=== PATIENT | female | born 1955 | race Caucasian/White ===

== ENCOUNTER 2017-06-05 15:08 | Emergency (ER) | payer MEDICAID ==
[2017-06-05] MEDS ORDERED: Labetalol 100 MG/20 ML MDV IVPUSH ONE (15:50)
--- NOTE | 2017-06-05 15:50 | EDM.PDOC ---
ED HPI GENERAL MEDICAL PROBLEM - General Chief Complaint: Cardiovascular Problem Stated Complaint: HIGH BP Time Seen by Provider: 06/05/17 15:40 Source of Information: Reports: Patient History Limitations: Reports: No Limitations - History of Present Illness INITIAL COMMENTS - FREE TEXT/NARRATIVE: 61-year-old female presents the ED for evaluation of high blood pressure. She was seen at the [facility] earlier today and BPs worse well over 200 systolically and around 110 to 1:15 diastolically. She's been taking metoprolol 50 mg twice a day and half of her triamterene/hydrochlorothiazide tablet daily. She does go to the doctor very often his financial barriers exist. Also exist to ability to purchase medications. She was thus sent her for blood pressure control and further investigations. She has no headache. She is quite anxious from being told that she is at high risk of stroke and heart attack from the clinic. Onset: Unknown/Unsure (Likely a chronic problem but rarely goes to clinic.) Duration: Chronic Location: Reports: Generalized Quality: Reports: Other (Has no pain) Severity: Moderate Improves with: Reports: None Worsens with: Reports: None Context: Denies: Activity, Exercise, Lifting, Sick Contact, Trauma, Other Associated Symptoms: Reports: No Other Symptoms Treatments CNS: Reports: Other (see below) (None.) - Related Data Allergies Allergy/AdvReac Type Severity Reaction Status Date / Time No Known Allergies Allergy Verified 06/05/17 15:30 Home Meds: Home Meds Metoprolol Tartrate [Lopressor] 50 mg PO BID 06/05/17 [History] Metoprolol Tartrate [Lopressor] 50 mg PO Q12HR #60 tablet 06/05/17 [Rx] Triamterene/Hydrochlorothiazid [Triamterene-HCTZ 37.5-25 MG] 1 tab PO DAILY [History] amLODIPine [Norvasc] 10 mg PO DAILY #30 tablet 06/05/17 [Rx] Past Medical History Cardiovascular History: Reports: Hypertension 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 Denies: Fever, Chills, Diaphoresis, Decreased Appetite, Weight Loss HEENT: Reports: Glasses (Wears glasses for reading.) Respiratory: Reports: Pleuritic Chest Pain (Intermittent sharp stabbing chest pain in the center of her chest and limited to the left precordium and is relieved by burping suggesting esophageal spasm.), Cough (Chronic cough clear sputum.). Denies: Shortness of Breath, Wheezing Cardiovascular: Reports: Chest Pain, Blood Pressure Problem (Intermittent sharp stabbing precordial chest pain that improves with burping.), Dyspnea on Exertion. Denies: Claudication ( And hypertensive for greater than 20 years.), Edema, Lightheadedness, Orthopnea, Palpitations Endocrine: Reports: Fatigue GI/Abdominal: Denies: Abdominal Pain, Anorexia, Black Stool, Bloody Stool, Constipation, Diarrhea, Decreased Appetite, Difficulty Swallowing, Distension, Flatus, Hematemesis, Hematochezia, Melena, Mucous in Stool, Nausea : Reports: Frequency. Denies: Incontinence Musculoskeletal: Reports: No Symptoms Skin: Reports: No Symptoms Neurological: Reports: No Symptoms Psychiatric: Reports: No Symptoms ED EXAM, GENERAL - Physical Exam Exam: See Below Exam Limited By: No Limitations General Appearance: Moderate Distress (Very anxious about possibility of having a stroke or heart attack.) Eye Exam: Bilateral Eye: Normal Inspection Throat/Mouth: Normal Inspection, Normal Lips, Normal Oropharynx Head: Atraumatic, Normocephalic Neck: Normal Inspection, Supple, Non-Tender, Full Range of Motion. No: Lymphadenopathy (L), Lymphadenopathy (R) Respiratory/Chest: No Respiratory Distress, Lungs Clear, Normal Breath Sounds, No Accessory Muscle Use Cardiovascular: Normal Peripheral Pulses, Regular Rate, Rhythm, No Edema, No Gallop, No Murmur Peripheral Pulses: 2+: Posterior Tibial (L), Posterior Tibial (R), Dorsalis Pedis (L), Dorsalis Pedis (R) GI/Abdominal: Normal Bowel Sounds, Soft, Non-Tender, No Organomegaly, No Distention, Other Back Exam: Normal Inspection, Full Range of Motion. No: CVA Tenderness (L), CVA Tenderness (R) Extremities: Normal Inspection, Normal Range of Motion, Non-Tender, No Pedal Edema Neurological: Alert, Oriented, CN II-XII Intact, Normal Cognition, Normal Gait Psychiatric: Normal Affect, Normal Mood Skin Exam: Warm, Dry, Intact, Normal Color, No Rash EKG INTERPRETATION EKG Date: 06/05/17 Time: 16:10 Rhythm: NSR Rate (Beats/Min): 70 [place]: Normal P-Wave: Present QRS: Normal ST-T: Normal QT: Prolonged (Moderately prolonged at 409.) Course - Vital Signs Last Recorded V/S: Last Vital Signs Temp 36.3 C 06/05/17 15:20 Pulse 69 06/05/17 16:09 Resp 16 06/05/17 15:20 BP 186/95 H 06/05/17 16:09 Pulse Ox 96 06/05/17 15:20 - Orders/Labs/Meds Orders: Active Orders 24 hr Category Date Time Status EKG Documentation Completion [RC] STAT Care 06/05/17 15:52 Active Chest 1V Frontal [CR] Stat Exams 06/05/17 15:52 Taken Labs: Laboratory Tests 06/05/17 06/05/17 06/05/17 Range/Units 15:35 15:35 16:00 WBC 5.96 (3.98-10.04) K/mm3 RBC 4.86 (3.98-5.22) M/mm3 Hgb 15.1 (11.2-15.7) gm/L Hct 45.2 H (34.1-44.9) % MCV 93.0 (79.4-94.8) fl MCH 31.1 (25.6-32.2) pg MCHC 33.4 (32.2-35.5) g/dl RDW Std Deviation 43.2 (36.4-46.3) fL Plt Count 269 (182-369) K/mm3 MPV 8.4 L (9.4-12.3) fl Neutrophils % (Manual) 73 H (40-60) % Band Neutrophils % 0 (0-10) % Lymphocytes % (Manual) 16 L (20-40) % Atypical Lymphs % 8 % Monocytes % (Manual) 2 (2-10) % Eosinophils % (Manual) 0 L (0.7-5.8) % Basophils % (Manual) 1 (0.1-1.2) Platelet Estimate Adequate Plt Morphology Comment Normal RBC Morph Comment Normal Sodium 135 L (136-145) mEq/L Potassium 3.9 (3.5-5.1) mEq/L Chloride 97 L (98-107) mEq/L Carbon Dioxide 28 (21-32) mEq/L Anion Gap 13.9 (5-15) BUN 11 (7-18) mg/dL Creatinine 1.0 (0.55-1.02) mg/dL Est Cr Clr Drug Dosing 56.00 mL/min Estimated GFR (MDRD) 56 (>60) mL/min BUN/Creatinine Ratio 11.0 L (14-18) Glucose 92 (80-115) mg/dL Calcium 9.2 (8.5-10.1) mg/dL Total Bilirubin 0.8 (0.2-1.0) mg/dL AST 34 (15-37) U/L ALT 37 (14-59) U/L Alkaline Phosphatase 84 (46-116) U/L C-Reactive Protein < 0.2 (<1.0) mg/dL Total Protein 8.1 (6.4-8.2) g/dl Albumin 4.2 (3.4-5.0) g/dl Globulin 3.9 gm/dL Albumin/Globulin Ratio 1.1 (1-2) TSH 3rd Generation 1.886 (0.358-3.74) uIU/mL Urine Color Yellow (Yellow) Urine Appearance Clear (Clear) Urine pH 6.5 (5.0-8.0) Ur Specific [place] 1.015 (1.005-1.030) Urine Protein Negative (Negative) Urine Glucose (UA) Negative (Negative) Urine Ketones Negative (Negative) Urine Occult Blood Negative (Negative) Urine Nitrite Negative (Negative) Urine Bilirubin Negative (Negative) Urine Urobilinogen 0.2 (0.2-1.0) Ur Leukocyte Esterase Negative (Negative) Urine RBC Not seen (0-5) /hpf Urine WBC 0-5 (0-5) /hpf Ur Epithelial Cells 0-5 (0-5) /hpf Urine Bacteria Moderate H (FEW) /hpf Urine Mucus Not seen (FEW) /hpf Meds: Medications Discontinued Medications Generic Name Dose Route Start Last Admin Trade Name Freq PRN Reason Stop Dose Admin Amlodipine Besylate 10 mg 06/05/17 15:51 06/05/17 16:09 Norvasc PO 06/05/17 15:52 10 mg ONETIME ONE Administration Labetalol HCl 20 mg 06/05/17 15:50 06/05/17 16:09 Normodynori IVPUSH 06/05/17 15:51 20 mg ONETIME ONE Administration Protocol - Radiology Interpretation Free Text/Narrative:: 61-year-old female presents to the ED at the request of her PA in [place]. She was found to have significant systolic hypertension with persistent systolics well over 200 between 202 20 and diastolics between 110 and 120. She is supposed to be on metoprolol 50 mg twice a day and triamterene/ hydrochlorothiazide one half tablet daily. She states she's been taking these but she does rash in the water pill at times. She is of limited financial resources. On arrival here she is otherwise normal with no headache no vertigo no evidence of malignant hypertension symptoms. Heart rate is sinus at 70/m ECG shows no evidence of left ventricular hypertrophy pattern. BP initially is 210/ 114. Plan she'll be given labetalol 20 mg IV and amlodipine 10 mg by mouth. Labs including renal function to be done. One view chest x-ray as well. - Re-Assessments/Exams Free Text/Narrative Re-Assessment/Exam: 06/05/17 16:28 chest x-ray reveals slightly hyperinflated lung pascal. Cardiac silhouette is normal. 06/05/17 17:10 labs reveal a normal white count at 5.96 with 73% neutrophils and no bands. Hemoglobin is 15.1 with hematocrit of 45.2. Platelets are 269, 000. Serum sodium is 135 potassium was 3.9 chloride was 97 bicarbonate was 28. Creatinine is 1.0 with an EGFR of 56. And a gap is 13.9 thyroid function TSH was 1.866 all normal. Therefore it appears that she has no evidence of organ damage from chronic hypertension and that it may have been uncontrolled for the last few months but not for many years. Medication changes do. Her blood pressure came down nicely to 157/90 after labetalol 20 mg IV. She also did receive amlodipine 10 mg by mouth. I'm going to discontinue her triamterene hydrochlorothiazide tablets and she's only taking half once a day anyways. She will stay on metoprolol 50 twice a day and will add amlodipine 10 mg once daily to her treatment plan. She will be purchasing a blood pressure monitor for home use as well as getting it checked outside the clinic in writing these numbers down so that we can identify if she needs further medications to control her hypertension. She will following up in the [facility] primarily. Departure - Departure Time of Disposition: 17:11 Disposition: Home, Self-Care 01 Condition: Fair Clinical Impression: Uncontrolled hypertension, stage 1 Prescriptions: Metoprolol Tartrate [Lopressor] 50 mg PO Q12HR #60 tablet amLODIPine [Norvasc] 10 mg PO DAILY #30 tablet Referrals: Jolene Wyatt NP [Primary Care Provider] - Forms: ED Department Discharge Additional Instructions: Evaluation in the emergency room today due to uncontrolled high blood pressure. Blood pressures at the clinic were well over 200 on the top number and over 110 on the bottom number. They should almost always be under 155 on the top and under 90 on the bottom. Complete investigations done through the ED did not reveal any problems with the kidneys liver urinary tract or heart systems. Therefore the high blood pressure has not caused any damage to your internal major organs. You're treated with labetalol 20 mg intravenously and given amlodipine 10 mg by mouth which reduced her blood pressure to 157/90. Treatment at home will now be to discontinue the triamterene had/hydrochlorothiazide tablet since she will no been taking a half once a day and some very weak blood pressure medication. Change will be continue metoprolol or Lopressor 50 mg twice daily as you have been doing. And the new medication will be called M [place] 10 mg once daily daily either first thing in the morning or at bedtime as tends to provide better 24-hour coverage of high blood pressure. It is probably better used at bedtime. Check her blood pressures outside of the clinic and hospital in various pharmacies and write down the time and the numbers that you achieve so helps us decide whether or not her blood pressure medications are adequate or whether you need further treatment. Follow-up in the clinic in about a month's time. - My Orders Last 24 Hours: My Active Orders 06/05/17 15:52 EKG Documentation Completion [RC] STAT Chest 1V Frontal [CR] Stat - Assessment/Plan Last 24 Hours: My Active Orders 06/05/17 15:52 EKG Documentation Completion [RC] STAT Chest 1V Frontal [CR] Stat
[2017-06-05] MEDS ORDERED: amLODIPine 10 MG Tab PO ONE (15:51)
[2017-06-05 16:10] VITALS: BP 186/95
--- NOTE | 2017-06-10 08:39 | CR ---
Chest: Frontal view of the chest was obtained. Comparison: No prior chest x-ray. Heart size is normal. Tortuous thoracic aorta is seen. Lungs are clear. Bony structures are grossly intact. Impression: 1. Nothing acute is identified on frontal chest x-ray. Diagnostic code #1
== END 2017-06-05 17:20 | disposition home or self-care (01) ==
LOC: JD.ED 15:08
DX: I10 Essential (primary) hypertension (principal); Z79.899 Other long term (current) drug therapy
CPT/HCPCS: 36415; 71010; 80053; 81001; 84443; 85025; 86140; 93005; 96374; 99284; A9270

== ENCOUNTER 2018-12-08 06:26 | Emergency (ER) | payer SELFPAY ==
[2018-12-08] MEDS ORDERED: Sodium Chloride 0.9% 10 ML Syringe FLUSH PRN (06:44)
--- NOTE | 2018-12-08 07:17 | EDM.PDOC ---
ED HPI GENERAL MEDICAL PROBLEM - General Chief Complaint: Chest Pain Stated Complaint: CHEST PAIN Time Seen by Provider: 12/08/18 07:01 Source of Information: Reports: Patient, RN Notes Reviewed, Significant Other ( Boyfriend) History Limitations: Reports: No Limitations - History of Present Illness INITIAL COMMENTS - FREE TEXT/NARRATIVE: The patient states that she was woken at 04:00 with sudden onset left-sided chest pain, felt in her left anterior axillary line, immediately left of her left breast. She states that the pain radiates to her sternum, but not to the right side. She describes the character of the pain as "annoying", but states that it is a pain, not a discomfort. She has not identified any modifiers. She denies associated dyspnea, diaphoresis, and sense of impending doom, but states that she has an upset stomach. Her pain is present here in the ED. No prior similar symptoms. The patient reports that she fell while carrying a crate of milk this past , 12/04/2018, and is wondering if she might have strained something in her chest. The patient's PCP is Leslye Nichole. Left Chest Pain Score (Numeric/FACES): 4 - Related Data Allergies Allergy/AdvReac Type Severity Reaction Status Date / Time No Known Allergies Allergy Verified 06/05/17 15:30 Home Meds: Home Meds Metoprolol Tartrate [Lopressor] 50 mg PO BID 06/05/17 [History] Metoprolol Tartrate [Lopressor] 50 mg PO Q12HR #60 tablet 06/05/17 [Rx] Triamterene/Hydrochlorothiazid [Triamterene-HCTZ 37.5-25 MG] 1 tab PO DAILY [History] amLODIPine [Norvasc] 10 mg PO DAILY #30 tablet 06/05/17 [Rx] Past Medical History Cardiovascular History: Reports: High Cholesterol, Hypertension Genitourinary History: Reports: Urinary Incontinence (stress incontinence) [employer]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: Reports: - Past Surgical History HEENT Surgical History: Reports: Cataract Surgery (right eye only), Oral Surgery (wisdom teeth extraction) Female Surgical History: Reports: Cervical Cryotherapy Social & Family History - Tobacco Use Smoking Status *Q: Never Smoker - Caffeine Use Caffeine Use: Reports: Soda - Alcohol Use Alcohol Use History: Yes Alcohol Use Frequency: Socially - Recreational Drug Use Recreational Drug Use: No - Living Situation & Occupation Living situation: Reports: , with Significant Other (Boyfreind) Occupation: Unemployed ED ROS GENERAL - Review of Systems Review Of Systems: ROS reveals no pertinent complaints other than HPI. ED EXAM, GENERAL - Physical Exam Exam: See Below Exam Limited By: No Limitations General Appearance: Alert, WD/WN, No Apparent Distress Eye Exam: Bilateral Eye: EOMI, Normal Inspection Ears: Normal External Exam, Hearing Grossly Normal Nose: Normal Inspection Throat/Mouth: Normal Inspection, Normal Lips, Normal Voice, No Airway Compromise Head: Atraumatic, Normocephalic Neck: Normal Inspection, Full Range of Motion Respiratory/Chest: No Respiratory Distress, Lungs Clear, Normal Breath Sounds, No Accessory Muscle Use, Other (Reproducible tenderness to palpation of the lateral aspect of the patient's left pectoralis muscle) Cardiovascular: Normal Peripheral Pulses, Regular Rate, Rhythm, No Gallop, No JVD, No Murmur, No Rub Peripheral Pulses: 4+: Radial (L), Radial (R) GI/Abdominal: Normal Bowel Sounds, Soft, Non-Tender, No Organomegaly, No Distention, No Abnormal Bruit, No Mass, Other (Obese) (Female) Exam: Deferred Rectal (Female) Exam: Deferred Back Exam: Normal Inspection, Full Range of Motion, NT Extremities: Normal Inspection, Normal Range of Motion, No Pedal Edema, Normal Capillary Refill Neurological: Alert, Oriented, Normal Cognition, No Motor/Sensory Deficits Psychiatric: Normal Affect Skin Exam: Warm, Dry, Intact, Normal Color, No Rash EKG INTERPRETATION EKG Date: 12/08/18 Time: 06:36 Rhythm: NSR Rate (Beats/Min): 72 [place]: Normal P-Wave: Present QRS: Normal ST-T: Normal QT: Normal Comparison: No Change (06/05/2017) Course - Vital Signs Last Recorded V/S: Last Vital Signs Temp 36.3 C 12/08/18 06:33 Pulse 76 12/08/18 06:33 Resp 16 12/08/18 06:33 BP 172/102 H 12/08/18 06:33 Pulse Ox 97 12/08/18 06:33 - Orders/Labs/Meds Orders: Active Orders 24 hr Category Date Time Status EKG 12 Lead [EKG Documentation Completion] [RC] STAT Care 12/08/18 06:44 Active Peripheral IV Care [RC] . DIRECTED Care 12/08/18 06:45 Active Chest 1V Frontal [CR] Stat Exams 12/08/18 06:44 Ordered CBC WITH AUTO DIFF [HEME] Stat Lab 12/08/18 06:50 Stop Req Sodium Chloride 0.9% [Saline Flush] Med 12/08/18 06:44 Active 10 ml FLUSH ASDIRECTED PRN Peripheral IV Insertion Adult [OM.PC] Stat Oth 12/08/18 06:45 Ordered Medication Orders Sodium Chloride (Saline Flush) 10 ml FLUSH ASDIRECTED PRN PRN Reason: Keep Vein Open Labs: Laboratory Tests 12/08/18 12/08/18 Range/Units 06:50 06:50 WBC 5.63 (3.98-10.04) K/mm3 RBC 4.12 (3.98-5.22) M/mm3 Hgb 12.7 (11.2-15.7) gm/L Hct 37.7 (34.1-44.9) % MCV 91.5 (79.4-94.8) fl MCH 30.8 (25.6-32.2) pg MCHC 33.7 (32.2-35.5) g/dl RDW Std Deviation 41.1 (36.4-46.3) fL Plt Count 335 (182-369) K/mm3 MPV 8.3 L (9.4-12.3) fl Neutrophils % (Manual) 65 H (40-60) % Band Neutrophils % 0 (0-10) % Lymphocytes % (Manual) 23 (20-40) % Atypical Lymphs % 0 % Monocytes % (Manual) 8 (2-10) % Eosinophils % (Manual) 3 (0.7-5.8) % Basophils % (Manual) 1 (0.1-1.2) Platelet Estimate Adequate RBC Morph Comment Normal Sodium 131 L (136-145) mEq/L Potassium 4.5 (3.5-5.1) mEq/L Chloride 98 (98-107) mEq/L Carbon Dioxide 24 (21-32) mEq/L Anion Gap 13.5 (5-15) BUN 11 (7-18) mg/dL Creatinine 1.0 (0.55-1.02) mg/dL Est Cr Clr Drug Dosing 55.27 mL/min Estimated GFR (MDRD) 56 (>60) mL/min BUN/Creatinine Ratio 11.0 L (14-18) Glucose 96 (80-115) mg/dL Calcium 9.0 (8.5-10.1) mg/dL Total Bilirubin 0.4 (0.2-1.0) mg/dL AST 43 H (15-37) U/L ALT 41 (14-59) U/L Alkaline Phosphatase 75 (46-116) U/L Troponin I < 0.017 (0.00-0.056) ng/mL Total Protein 7.4 (6.4-8.2) g/dl Albumin 3.7 (3.4-5.0) g/dl Globulin 3.7 gm/dL Albumin/Globulin Ratio 1.0 (1-2) Meds: Medications Generic Name Dose Route Start Last Admin Trade Name Freq PRN Reason Stop Dose Admin Sodium Chloride 10 ml 12/08/18 06:44 Saline Flush FLUSH ASDIRECTED PRN Keep Vein Open - Re-Assessments/Exams Free Text/Narrative Re-Assessment/Exam: 12/08/18 07:16 The patient's pain is reproducible with palpation to the lateral side of her left pectoralis muscle, left of her left breast, indicating that her pain is musculoskeletal in etiology. 12/08/18 08:04 Portable chest radiograph appears to be grossly normal. The cardiac silhouette is within normal limits. No pulmonary vascular congestion. No pleural effusions. No focal infiltrate. No pneumothorax. Formal read per the Radiologist pending. 12/08/18 08:07 Test results discussed with the patient and her boyfriend. Today's workup is entirely unremarkable. As above, her pain appears to be musculoskeletal in etiology. She does not want to take any unnecessary medicines, and I reassured her that her pain will likely resolve on its own within the next few days. Departure - Departure Time of Disposition: 08:08 Disposition: Home, Self-Care 01 Condition: Good Clinical Impression: Strain of left pectoralis muscle - Discharge Information *PRESCRIPTION DRUG MONITORING PROGRAM REVIEWED*: Not Applicable *COPY OF PRESCRIPTION DRUG MONITORING REPORT IN PATIENT ISAAK: Not Applicable Referrals: Leslye Nichole NP [Primary Care Provider] - Forms: ED Department Discharge Additional Instructions: You were seen in the emergency room for sudden onset left-sided chest pain. Workup in the ER included blood work, a chest x-ray, and an ECG. Your entire workup was unremarkable. You have not suffered a heart attack. Your pain was reproducible with palpation of your pectoralis muscle, indicating that your pain is due to pectoralis muscle strain. You may take [id number] Tylenol or ibuprofen as needed for discomfort, but your pain will likely go away on its own within a few days even if you do nothing. If any other problems, please do not hesitate to return to the ER.
[2018-12-08 08:21] VITALS: BP 149/79
--- NOTE | 2018-12-08 08:53 | CR ---
Chest: Portable view of the chest was obtained. Comparison: Prior chest x-ray of 06/05/17. Heart size and mediastinum are normal. Lungs are clear. Bony structures are grossly intact. Impression: 1. Nothing acute is seen on portable chest x-ray. Diagnostic code #1
== END 2018-12-08 08:22 | disposition home or self-care (01) ==
LOC: JD.ED 06:26
DX: S29.011A Strain of muscle and tendon of front wall of thorax, initial encounter (principal); I10 Essential (primary) hypertension; Z98.49 Cataract extraction status, unspecified eye; Z98.890 Other specified postprocedural states; Z79.899 Other long term (current) drug therapy; W19.XXXA Unspecified fall, initial encounter
CPT/HCPCS: 36415; 71045; 71045-26; 80053; 84484; 85007; 85027; 93005; 93010; 99284; 99285-25